=== PATIENT | female | born 1990 | race Asian ===

== ENCOUNTER 2018-07-18 16:52 | Emergency (ER) | payer OTHER ==
--- NOTE | 2018-07-18 17:01 | EDPHY ---
H & P Stated Complaint: RUQ pain x 4-5 days--feeling constipated - Personal History LMP (Females 10-55): IUD In Place - Medical/Surgical History Hx Asthma: No Hx Chronic Respiratory Disease: No Hx Diabetes: No Hx Cardiac Disease: No Hx Renal Disease: No Hx Cirrhosis: No Hx Alcoholism: No Hx HIV/AIDS: No Hx Splenectomy or Spleen Trauma: No Other PMH: lasix surgery 07/04/18 - Social History Smoking Status: Never smoked <Abisai Kwon - Last Filed: 07/18/18 20:00> <Thomas Ricks - Last Filed: 07/18/18 22:28> Time Seen by Provider: 07/18/18 17:01 Constitutional: Initial Vital Signs Temperature (C) 36.4 C 07/18/18 16:54 Heart Rate 81 07/18/18 16:54 Respiratory Rate 16 07/18/18 16:54 Blood Pressure 126/58 H 07/18/18 16:54 O2 Sat (%) 97 07/18/18 16:54 O2 Delivery Mode Room Air Allergies/Adverse Reactions: No Known Allergies Allergy (Unverified 07/18/18 16:54) Home Medications: Medication Instructions Recorded Percocet 7.5-325 mg Tablet 07/18/18 metroNIDAZOLE [Flagyl] 500 mg PO BID #28 tab 07/18/18 Medical Decision Making - Diagnostics Imaging: Discussed imaging studies w/ radio station manager Radiologist, I viewed and interpreted images myself <Abisai Kwon - Last Filed: 07/18/18 20:00> - Diagnostics Imaging: Discussed imaging studies w/ radio station manager Radiologist <Thomas Ricks - Last Filed: 07/18/18 22:28> - Diagnostics Imaging Results: Imaging Impressions Abdomen Ultrasound 07/18/18 17:10 Impression: Normal right upper quadrant ultrasound without evidence for cholelithiasis or cholecystitis. Results called and discussed with Abisai Kwon MD on July 18, 2018 at 1753 hours. Abdomen/Pelvis CT 07/18/18 19:04 Impression: 1. Large area of heterogeneous inflammatory change in the right lower pelvis contiguous with the uterus, right adnexal region, loop of sigmoid colon, and loops of small bowel. The appendix is normal in appearance superior to it, but the tip ends into this. With the normal appearance to the rest of the appendix, a ruptured appendiceal abscess is less likely. A tuboovarian abscess could be considered or severe inflammatory change in the adjacent loops of small bowel and rectosigmoid colon. 2. Several tiny nonobstructive calculi in both kidneys. 3. IUD is seen in the endometrial cavity. Results called and discussed with Abisai Kwon MD on July 18, 2018 at 1951 hours. Pelvic/Renal Ultrasound 07/18/18 19:48 Impression: Normal ultrasound pelvis. No evidence for tubo-ovarian abscess. Results called and discussed with Dr. Thomas Ricks at 07/18/2018 20:50. ED Course/Re-evaluation: CHIEF COMPLAINT: Abdominal pain HISTORY OF PRESENT ILLNESS: The patient is a 27 y/o female complaining of abdominal pain onset 4-5 days ago. The patient had Lasix surgery earlier this month (07/04/18) and was prescribed Percocet. After taking Percocet she became constipated so she stopped taking the Percocet. However, she has remained constipated. She has taken a stool softener for the last 6-8 days but has only had one bowel movement. In addition to feeling constipated she developed an upper right abdominal pain around 4-5 days ago. This pain is now in the entire upper abdomen under her ribs. She also had a heavier than normal menstrual cycle 2 weeks ago, which concerned her as she has an IUD in place. She saw her TRANSPORTATION BROKER last week and had a negative test. Due to her abdominal pain and constipation she decided to present to the emergency department. No fever, headache, body aches, lightheadedness, chest pain, heart palpitations, shortness of breath, cough, urinary complaints, numbness, paresthesias. REVIEW OF SYSTEMS: A comprehensive 10 system review of systems is otherwise negative aside from elements mentioned in the history of present illness and medical decision making. PHYSICAL EXAM: HR, BP, O2 Sat, RR. Temp noted General Appearance: Alert, well hydrated, appropriate, and non-toxic appearing. Head: Atraumatic without scalp tenderness or obvious injury Eyes: Pupils equal, round, reactive to light and accommodation, EOMI, no trauma , no injection. Ears: Clear bilaterally, no perforation, normal landmarks Nose: Atraumatic, no rhinorrhea, clear. Throat: There is no erythema or exudates, no lesions, normal tonsils, mucus membranes moist. Neck: Supple, 2+ carotid upstroke, nontender, no lymphadenopathy. Respiratory: No retractions, no distress, no wheezes, and no accessory muscle use. Lungs are clear to auscultation bilaterally. Cardiovascular: Regular rate and rhythm, no murmurs, rubs, or gallops. Bilateral carotid, radial, dorsalis pedis, and posterior tibial pulses intact. Good capillary refill all extremities. Gastrointestinal: RUQ, epigastric, and left pericolic gutter tenderness to palpation. Abdomen is soft, non-distended, no masses, no rebound, no guarding, no peritoneal signs. Musculoskeletal: Normal active ROM of all extremities, atraumatic. Neurological: Alert, appropriate, and interactive. The patient has normal DTRs and non-focal cranial nerves, motor, sensory, and cerebellar exam. Skin: No rashes, good turgor, no nodules on palpation. Past medical history: Denies Past surgical history: Lasix surgery (07/04/18) Family history: Denies Social history: Single, employed, lives in [place] DIAGNOSTICS/PROCEDURES/CRITICAL CARE TIME: Abdominal US: Normal right upper quadrant ultrasound without evidence for cholelithiasis or cholecystitis. Abdominopelvic CT: Unable to fully visualize the appendix. There is a confluence of bowel or ovarian abscess in the right lower quadrant. DIFFERENTIAL DIAGNOSIS: The differential diagnosis for the patient's abdominal pain included but was not limited to ovarian cyst, tubo-ovarian abscess, constipation, pelvic inflammatory disease, ovarian torsion, urinary tract infection, ectopic , cholecystitis, and appendicitis. MEDICAL DECISION MAKING: The patient is a 27 y/o female presenting with abdominal pain onset 4-5 days ago. The patient had Lasix surgery earlier this month (07/04/18) and was prescribed Percocet. After taking Percocet she became constipated and started taking a stool softener for the last 6-8 days but has only had one bowel movement. In addition to feeling constipated she developed an upper right abdominal pain around 4-5 days ago that is now in the entire upper abdomen under her ribs. On exam she has RUQ, epigastric, and left pericolic gutter tenderness to palpation. Labs and abdominal US ordered; 2L IV NS administered. 1726: Patient's UA reveals WBC and RBC. There is no leukocyte esterase, but there is sperm present. We will need a repeat UA. Patient's labs reveal an elevated white count. 1752: Normal right upper quadrant ultrasound without evidence for cholelithiasis or cholecystitis. Her repeat UA still reveals WBC and RBC. I suspect she has a kidney stone; abdominopelvic CT ordered. 1949: I spoke with Dr. Flores, radiologist, regarding the patient's abdominopelvic CT. He is unable to fully visualize the appendix. There is a confluence of bowel or ovarian abscess in the right lower quadrant. 1951: Reassessed patient and discussed imaging and laboratory findings. Pelvic US ordered to further investigate the CT findings as I am concerned she has a right-sided tubo-ovarian abscess. She is also still in pain; 15mg IV Toradol administered. 1999: Patient care turned over to Dr. Ricks at shift change; pelvic US still pending. (Abisai Kwon) Other Provider: 20:00 I assumed care of this patient from Dr. Kwon at shift change. US pelvis is pending at this time; concern for right tubo-ovarian abscess. 20:[address] Flores, radiologist. US pelvis negative for tubo-ovarian abscess. Large area of heterogeneous inflammatory change in the right lower pelvis noted on CT, see radiologist report for details. Dr. Glass, general surgeon, to consult. 21:[address] Wilson, TRANSPORTATION BROKER. Alerted that patient had a positive chlamydia test 10 days ago which she has apparently not been informed about. Dr. Wilson has completed evaluation, including pelvic exam, and feels symptoms are consistent with PID. She recommends standard outpatient treatment with ceftriaxone, azithromycin and metronidazole and discharge. (Thomas Ricks) - Data Points Laboratory Results: Laboratory Results 07/18/18 17:14 07/18/18 17:14 07/18/18 07/18/18 07/18/18 18:45 17:14 17:14 WBC RBC Hgb Hct MCV MCH MCHC RDW Plt Count MPV Neut % (Auto) Lymph % (Auto) Mellette % (Auto) Eos % (Auto) Baso % (Auto) Nucleat RBC Rel Count Absolute Neuts (auto) Absolute Lymphs (auto) Absolute Monos (auto) Absolute Eos (auto) Absolute Basos (auto) Absolute Nucleated RBC Immature Gran % Immature Gran # Sodium 137 mEq/L mEq/L (135-145) Potassium 3.8 mEq/L mEq/L (3.5-5.2) Chloride 100 mEq/L mEq/L (97-110) Carbon Dioxide 24 mEq/l mEq/l (22-31) Anion Gap 13 mEq/L mEq/L (6-14) BUN 13 mg/dL mg/dL (7-23) Creatinine 0.7 mg/dL mg/dL (0.6-1.0) Estimated GFR > 60 Glucose 93 mg/dL mg/dL (70-100) Calcium 9.5 mg/dL mg/dL (8.5-10.4) Total Bilirubin 0.9 mg/dL mg/dL (0.1-1.4) Conjugated Bilirubin 0.5 mg/dL mg/dL (0.0-0.5) Unconjugated Bilirubin 0.4 mg/dL mg/dL (0.0-1.1) AST 23 IU/L IU/L (14-46) ALT 27 IU/L IU/L (9-52) Alkaline Phosphatase 60 IU/L IU/L (38-126) Total Protein 7.9 g/dL g/dL (6.3-8.2) Albumin 4.3 g/dL g/dL (3.5-5.0) Lipase 39 IU/L IU/L (23-300) Beta HCG, Qual NEGATIVE Urine Color PALE YELLOW Urine Appearance CLEAR Urine pH 6.0 (5.0-7.5) Ur Specific [place] 1.009 (1.002-1.030) Urine Protein NEGATIVE (NEGATIVE) Urine Ketones 1+ H (NEGATIVE) Urine Blood 3+ H (NEGATIVE) Urine Nitrate NEGATIVE (NEGATIVE) Urine Bilirubin NEGATIVE (NEGATIVE) Urine Urobilinogen NEGATIVE EU EU (0.2-1.0) Ur Leukocyte Esterase NEGATIVE (NEGATIVE) Urine RBC 25-50 /hpf H /hpf (0-3) Urine WBC 1-3 /hpf /hpf (0-3) Ur Epithelial Cells TRACE /lpf /lpf (NONE-1+) Urine Bacteria TRACE /hpf H /hpf (NONE SEEN) Urine Mucus TRACE /lpf /lpf (NONE-1+) Urine Yeast Urine Sperm Urine Glucose NEGATIVE (NEGATIVE) 07/18/18 07/18/18 17:14 17:07 WBC 11.28 10^3/uL H 10^3/uL (3.80-9.50) RBC 3.90 10^6/uL L 10^6/uL (4.18-5.33) Hgb 12.4 g/dL L g/dL (12.6-16.3) Hct 38.2 % % (38.0-47.0) MCV 97.9 fL fL (81.5-99.8) MCH 31.8 pg pg (27.9-34.1) MCHC 32.5 g/dL g/dL (32.4-36.7) RDW 11.9 % % (11.5-15.2) Plt Count 375 10^3/uL 10^3/uL (150-400) MPV 7.6 fL L fL (8.7-11.7) Neut % (Auto) 79.6 % H % (39.3-74.2) Lymph % (Auto) 13.6 % L % (15.0-45.0) Mellette % (Auto) 5.5 % % (4.5-13.0) Eos % (Auto) 0.6 % % (0.6-7.6) Baso % (Auto) 0.3 % % (0.3-1.7) Nucleat RBC Rel Count 0.0 % % (0.0-0.2) Absolute Neuts (auto) 8.98 10^3/uL H 10^3/uL (1.70-6.50) Absolute Lymphs (auto) 1.53 10^3/uL 10^3/uL (1.00-3.00) Absolute Monos (auto) 0.62 10^3/uL 10^3/uL (0.30-0.80) Absolute Eos (auto) 0.07 10^3/uL 10^3/uL (0.03-0.40) Absolute Basos (auto) 0.03 10^3/uL 10^3/uL (0.02-0.10) Absolute Nucleated RBC 0.00 10^3/uL 10^3/uL (0-0.01) Immature Gran % 0.4 % % (0.0-1.1) Immature Gran # 0.05 10^3/uL 10^3/uL (0.00-0.10) Sodium Potassium Chloride Carbon Dioxide Anion Gap BUN Creatinine Estimated GFR Glucose Calcium Total Bilirubin Conjugated Bilirubin Unconjugated Bilirubin AST ALT Alkaline Phosphatase Total Protein Albumin Lipase Beta HCG, Qual Urine Color JENIFER Urine Appearance HAZY Urine pH 6.0 (5.0-7.5) Ur Specific [place] 1.033 H (1.002-1.030) Urine Protein 2+ H (NEGATIVE) Urine Ketones 1+ H (NEGATIVE) Urine Blood 3+ H (NEGATIVE) Urine Nitrate NEGATIVE (NEGATIVE) Urine Bilirubin NEGATIVE (NEGATIVE) Urine Urobilinogen 2.0 EU H EU (0.2-1.0) Ur Leukocyte Esterase NEGATIVE (NEGATIVE) Urine RBC 50-182 /hpf H /hpf (0-3) Urine WBC 10-15 /hpf H /hpf (0-3) Ur Epithelial Cells TRACE /lpf /lpf (NONE-1+) Urine Bacteria Urine Mucus 2+ /lpf H /lpf (NONE-1+) Urine Yeast PRESENT /hpf /hpf (NONE SEEN) Urine Sperm PRESENT /hpf H /hpf (NONE SEEN) Urine Glucose NEGATIVE (NEGATIVE) Medications Given: Discontinued Medications Sodium Chloride (Ns) 1,000 mls @ 0 mls/hr IV EDNOW ONE; Wide Open PRN Reason: Protocol Stop: 07/18/18 17:10 Last Admin: 07/18/18 17:24 Dose: 1,000 mls Sodium Chloride (Ns) 1,000 mls @ 0 mls/hr IV ONCE ONE; Wide Open PRN Reason: Protocol Stop: 07/18/18 17:54 Last Admin: 07/18/18 17:56 Dose: 1,000 mls Ketorolac Tromethamine (Toradol) 15 mg IVP EDNOW ONE Stop: 07/18/18 19:53 Last Admin: 07/18/18 19:54 Dose: 15 mg Departure <Abisai Kwon - Last Filed: 07/18/18 20:00> <Thomas Ricks - Last Filed: 07/18/18 22:28> - Departure Disposition: Home, Routine, Self-Care Clinical Impression: Abdominal pain, Pelvic inflammatory disease Condition: Good Instructions: Constipation (ED) Additional Instructions: Follow-up with your administrative services assistant within 72 hours. Return to the ED immediately for worsening abdominal pain, fever, vomiting, failure of symptoms to improve. Do not drink any alcohol whatsoever while taking antibiotics as this will cause a bad reaction. Referrals: [facility],. [Clinic] - As per Instructions Prescriptions: metroNIDAZOLE [Flagyl] 500 mg PO BID #28 tab Report Scribed for: Abiasi Kwon Report Scribed by: Cristina Mejia Date of Report: 07/18/18 Time of Report: 17:04 <Abisai Kwon - Last Filed: 07/18/18 20:00>
[2018-07-18] MEDS ORDERED: NS 1,000 ML IV ONE ×2 (17:09→17:53)
[2018-07-18 17:23] LABS: PLATELET COUNT 375 10^3/uL (150-400)
[2018-07-18] MEDS ORDERED: KETOROLAC 15 MG/1 ML SDV ONE (19:52)
[2018-07-18] MEDS ORDERED: KETOROLAC 15 MG/1 ML SDV IVP ONE (19:52)
--- NOTE | 2018-07-18 21:56 | PDCONSULT ---
Project Coach Note: # [id number] Maldonado Glass MD, FACS
[2018-07-18] MEDS ORDERED: AZITHROMYCIN 250 MG TAB PO ONE (22:22)
[2018-07-18 22:59] VITALS: BP 111/74
--- NOTE | 2018-07-19 08:37 | GCON ---
[f rep st] CONSULTATION SURGICAL CONSULT DATE OF CONSULTATION: 07/18/2018 REQUESTING PHYSICIAN: Dr. Thomas Ricks CHIEF COMPLAINT: Abdominal pain. HISTORY OF PRESENT ILLNESS: The patient is a 27-year-old female who presented to the emergency room for evaluation of ongoing abdominal pain. This started approximately 2-1/2 weeks ago after she ate o ut at a [employer] restaurant. She subsequently had the beginnings of her menstrual cycle on [facility] , which she described as being associated with very heavy cramping and heavy bleeding. This was unusual for her, and her symptoms continued for a few days, and then started to subside. She the n had LASIK surgery on July 04, 2018, and after that surgery took Percocet for several days and melony me constipated. After taking laxatives, her bowel movements improved, but she continued to have inte rmittent pain, and this has gotten progressively worse over the last 4 days. She was seen at [facility] by Dr. Indu Cárdenas on July 08, 2018, and a pelvic ultrasound was performed a t that time, as well as vaginal cultures. She came to the emergency room this evening, was seen by Wale Kwon and Dr. Ricks, and a number of tests were performed, including a noncontrast CT, a righ t upper quadrant ultrasound, and a pelvic ultrasound. The noncontrast CT was prompted by an abnormal urinalysis, which showed microhematuria. CT scan was nondiagnostic, showed a mostly normal appendix . The study, being noncontrast, did not have very good resolution for appendiceal diagnostics. The tip of the appendix could not be visualized. There was an inflammatory process in the patient's pelv is that was also poorly defined. A subsequent pelvic ultrasound was performed, which showed a normal ovary on each side and no significant free fluid in the pelvis. No evidence of ovarian torsion was noted. An upper abdominal ultrasound performed prior to CT showed no evidence of cholelithiasis or c holecystitis, and no significant perihepatic fluid. There was no ductal dilatation. The patient's w jeovanny blood cell count was mildly elevated at 11.2. Her hemoglobin was 12.4, and her hematocrit 38. The patient appears to be resting comfortably. She has not requested narcotics since arriving in the emergency department several hours ago. She last ate at approximately 2 in the afternoon. She has had no nausea, vomiting, no anorexia, and in fact, is hungry now. The patient last had a bowel movem ent earlier today. Denies any hematochezia. The patient was last sexually active this morning. Denies significant pelvic pain with intercourse. PAST MEDICAL HISTORY: Significant for no prior abdominal surgeries or pregnancies. She has had an I UD in place for approximately 2 years. SOCIAL HISTORY: The patient smokes marijuana every other day. She works as a analytics director, and admits to drinking alcohol. Does not smoke cigarettes. Denies illicit drug use. FAMILY HISTORY: Noncontributory. REVIEW OF SYSTEMS: Pertinent negatives are per history of present illness. The patient denies any f ever, rash, abdominal or pelvic trauma. PHYSICAL EXAMINATION: GENERAL: Reveals a pleasant young woman who appears in no acute distress. JACK SIGNS: Temperature is 36.6, blood pressure 108/75, heart rate is 82, respiratory rate 16, O2 sat is 100% on room air. HEENT: There is no scleral icterus. NECK: Supple without adenopathy. The t rachea is midline. There is no oral thrush. LUNGS: Clear to auscultation. HEART: Regular in rate and rhythm without murmurs. ABDOMEN: Soft, nondistended, minimally tympanitic without significant percussion tenderness. Bowel sounds are active and present. The patient has tenderness in the left lower quadrant and right lower quadrant, as well as the suprapubic midline and right upper quadrant. There is no significant guarding. No palpable mass. No hepatosplenomegaly. No abdominal wall vivian ia. No inguinal adenopathy. PELVIC AND RECTAL: Were not performed. IMAGING STUDIES: Reviewed. The appendix appears mostly normal, other than the inability to clearly visualize the tip. There is a nonspecific inflammatory process in the pelvis versus normal loops of bowel due to lack of intravenous contrast; cannot be determined. LABORATORY STUDIES: WBC is 11.2, hemoglobin 12.4, hematocrit 38.2, platelets 375. Sodium 137, potas sium 3.8, chloride 100, bicarb 24, BUN 13, creatinine 0.7, glucose 93, bilirubin 0.9, conjugated bili harris 0.5, AST 23, ALT 27, alk phos 60, lipase 39. Beta hCG negative. Urinalysis: PH was 6, specif ic gravity 1.009, three plus blood on dipstick, negative nitrate, negative leukocyte esterase, 25 to 50 RBCs per high-power field, 1 to 3 WBCs per high-powered field. Urinary sperm is present. Serolog y on July 08, 2018, the patient had a positive chlamydia RNA. Negative Neisseria gonorrhoeae RNA. IMPRESSION: Abdominal pain. Etiology remains unclear, but clinical presentation makes this unlikely to be appendicitis. Differential diagnosis, including pelvic inflammatory disease (Jbfh-Hnuf-Kfartg syndrome), inflammatory bowel disease, which seems less likely with the prodrome of constipation. R uptured ovarian cyst would seem less likely, as there is no significant fluid in the pelvis on ultras ound. RECOMMENDATIONS: Discussed the findings with the patient, and recommended TELETYPESETTER OPERATOR consultation. There m ay be need for laparoscopic confirmation of the diagnosis, at which point, I recommended to the patie nt that we remove her appendix at that time, even if it did not appear to be the primary cause of her symptoms. I will hold off on initiating antibiotic therapy until the patient has been evaluated by TELETYPESETTER OPERATOR. /[id number]/MODL
--- NOTE | 2018-07-19 08:57 | GCON ---
[f rep st] CONSULTATION DATE OF CONSULTATION: 07/18/2018 REASON FOR CONSULTATION: Right-sided abdominal pain and positive chlamydia test. HISTORY OF PRESENT ILLNESS: The patient is a 27-year-old, 0, who presented to the emergency room complaining of sharp right-sided abdominal pain. The patient has had a Liletta and has had regu lar light periods until recently. Two weeks ago, she developed a 10-day history of increased dischar ge, cramping, and bleeding, so she presented to [facility] for evaluation. Pelvic ultrasou nd was performed, which was unremarkable. Chlamydia and gonorrhea cultures were obtained at that alli e, which the patient did test positive for chlamydia on 07/08, but she has not been informed of that positive result as of time presenting to the emergency room. The patient has had a new sexual partne r since March of 2018, and neither one of them have had chlamydia or gonorrhea testing or STD test ing prior to initiating their sexual contact, and have not been using condoms. The patient had an ep isode of 10-day bleeding, as previously stated. The bleeding has decreased over the last couple days . She also was having episodes of constipation, which resolved with MiraLAX. The patient states sidney t she had been having cramping and occasional pain, which then moved to her right rib a few days ago. Last night, her pain, primarily up by her right ribs, increased to the point that she almost called the emergency room; however, it resolved, and it increased again this evening. So, she presented to the emergency room. The patient overall, other than that, feels well. She had been constipated bec ause of taking narcotics following eye surgery, but since beginning pooping more regularly, she has b een feeling better. She had sex yesterday morning, which was potentially slightly more uncomfortable , but she was able to have sex to completion. The patient denies any fevers or chills, nausea or vom iting or other abdominal pain. The patient was surprised and disappointed to learn about the positiv e chlamydia culture. While in the emergency room this evening, we had a long discussion about transm ission of sexually transmitted diseases and safe sex practices, and discussed management options. MEDICAL HISTORY: Significant for dermatitis, childhood asthma, hay fever. MEDICATIONS: Liletta, Flonase, ibuprofen as needed, Percocet after surgery. PAST SURGICAL HISTORY: Eye surgery, which was PRK, and tonsillectomy. ALLERGIES: No known drug allergies. SOCIAL HISTORY: She has and been in a relationship since March. She denies tobacco use. She saez s drink 3 beverages 3 times a week, and pot occasionally. FAMILY MEDICAL HISTORY: Noncontributory. OBSTETRICAL/GYNECOLOGICAL HISTORY: The patient is a 0. She denies any history of any abnorm al Pap smears, although it has been several years since she has had one. She denies any history of a ny sexually transmitted diseases, with the exception of this most recent diagnosis. She admits her l ast STD testing was in 2017, or possibly at the latest, beginning of 2018. REVIEW OF SYSTEMS: Ten-point review of systems is negative with the exception of the above-mentioned pertinent positives. PHYSICAL EXAMINATION: VITAL SIGNS: Stable. Her blood pressure is 108/75, heart rate is 82, tempera ture is 36.6, respiratory rate is 16. GENERAL APPEARANCE: Alert and oriented x3. MUSCULOSKELETAL: Grossly intact. NEURO: Grossly intact. PSYCH: Appropriate affect. NECK: Mobile and supple. HE ART: Irregularly irregular. LUNGS: Clear to auscultation bilaterally. ABDOMEN: Soft. There is n o guarding or rebound. She does have some mild right upper quadrant tenderness. PELVIC: Reveals a mobile midposition uterus with no adnexal masses. No cervical motion tenderness. LABS: White blood count is 11.2, hemoglobin is 12.4, hematocrit is 38.2, her platelets are 375. Her liver function tests are negative. Complete metabolic panel is negative. HCG is negative. Urine i s pending. IMAGING: Was done, which showed a CT of the abdomen with large heterogeneous inflammatory changes in the right lower pelvis contiguous with the uterus, right adnexal region loop of sigmoid colon and lo op of small bowel. The appendix is normal in appearance, but the tip ends within the area of inflamm ation. Ruptured appendiceal abscess is less likely. Tubo-ovarian abscess could be considered. IUD is within the endometrium. A pelvic ultrasound shows uterus measuring 6.9 x 3 x 4.3 cm with an endometrial thickness of 3.9 mm. An IUD in place. Right ovary measures 3.8 x 5.5 x 4.3 cm. Left ovary measures 2.2 x 3.8 x 1.9 cm. No adnexal masses were seen. No evidence of tubo-ovarian abscess was noted. ASSESSMENT AND PLAN: A 27-year-old, 0, with abdominal pain and a recent diagnosis of chlamyd ia. The patient is able to tolerate food, and is not having any nausea or vomiting. We discussed p. o. treatment with p.o. Zithromax, as well as prolonged treatment for possible pelvic inflammatory dis ease with 250 mg of ceftriaxone x1, and 500 mg of Flagyl p.o. twice daily for 2 weeks. The patient w as given indications to follow up, as well as appendicitis precautions. She is instructed to call r office on Friday to schedule a followup test of cure for 3 weeks. She is instructed to talk to her partner, and [facility], and to abstain from having sex unti l both are tested and negative. This plan was extensively reviewed with the patient. The patient ag toyin to proceed with plan. /[id number]/MODL
== END 2018-07-18 22:58 | disposition home or self-care (01) ==
DX: R10.11 Right upper quadrant pain (principal); N73.9 Female pelvic inflammatory disease, unspecified; A74.9 Chlamydial infection, unspecified; E86.9 Volume depletion, unspecified; N20.0 Calculus of kidney; Z97.5 Presence of (intrauterine) contraceptive device
CPT/HCPCS: 96374; J0696; J1885